=== PATIENT | female | born 1995 | race Caucasian/White ===

== ENCOUNTER 2020-07-15 02:28 | Emergency (ER) | payer MEDICAID ==
[2020-07-15] MEDS ORDERED: Sodium Chloride 0.9% 1,000 ML IV ONE ×2 (02:43→02:54)
[2020-07-15] MEDS ORDERED: Ondansetron 4 MG/2 ML SDV IVPUSH ONE ×2 (02:44→05:01)
[2020-07-15] MEDS ORDERED: Sodium Chloride 0.9% 10 ML Syringe FLUSH PRN (02:54)
[2020-07-15] MEDS ORDERED: Ketorolac 15 MG/ML SDV IVPUSH ONE (02:54)
[2020-07-15] MEDS ORDERED: Sodium Chloride 0.9% 2.5 ML Syringe FLUSH PRN (02:54)
[2020-07-15 03:17] LABS: CARBON DIOXIDE,CO2 27.2 mmol/L (21.0-32.0); POTASSIUM,K 3.6 mmol/L (3.5-5.1)
[2020-07-15] MEDS ORDERED: Cyclobenzaprine 10 MG Tab PO ONE (03:39)
[2020-07-15] MEDS ORDERED: Ketorolac 15 MG/ML SDV IVPUSH STA (03:40)
--- NOTE | 2020-07-15 05:03 | EDM.PDOC ---
ED HPI GENERAL MEDICAL PROBLEM - General Chief Complaint: Gastrointestinal Problem Stated Complaint: VOMITING Time Seen by Provider: 07/15/20 02:49 - History of Present Illness INITIAL COMMENTS - FREE TEXT/NARRATIVE: HISTORY AND PHYSICAL: History of present illness: Male who presents ER today complaining of nausea vomiting and diarrhea that started approximately 14 hours prior to arrival to the ED. Patient reports that she was in usual state of good health prior to this occurring. Patient denies any recent fevers, shakes, chills. Patient reports decreased urinary output secondary to decreased p.o. intake over the last 12 to 14 hours. Patient has any chest pain or shortness of breath. Patient complains of abdominal discomfort with vomiting but otherwise is not having any abdominal pain. Patient reports no other sick family contacts. Patient reports that she is had approximately 6 loose watery bowel movements in the last several hours at approximately 6-8 episodes of emesis. Patient denies any other sick family contacts or other people with similar symptoms. Patient denies any known Covid exposures. Patient reports has been quite a while since her last menstrual period secondary to [place]. 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 Patient reports she has not used heroin in several months and does not believe that she is in withdrawal right now. Review of systems: As per history of present illness and below otherwise all systems reviewed and negative. Past medical history: As per history of present illness and as reviewed below otherwise noncontributory. Surgical history: As per history of present illness and as reviewed below otherwise noncontributory. Social history: No reported history of drug or alcohol abuse. Family history: As per history of present illness and as reviewed below otherwise noncontributory. Physical exam: This patient was seen and evaluated during the 2019 SARS-CoV-2 novel coronavirus pandemic period. Community viral transmission is ongoing at time of this encounter and the emergency department is operating under pandemic response procedures. Constitutional: Patient is oriented to person, place, and time. Appears well- developed and well-nourished. No distress. HEENT: Moist mucous membranes Head: Normocephalic and atraumatic Eyes: Right eye exhibits no discharge. Left eye exhibits no discharge. No scleral icterus Neck: Normal range of motion. No tracheal deviation present. Cardiovascular: Normal rate and regular rhythm. Pulmonary: Effort normal, no respiratory distress. Abd: Soft, nondistended, no rebound/guarding, no psoas or obturator signs, no tenderness at Mcberney's point, no Bailey's sign. Pt does not present with an exam that would be consistent with an acute surgical abdomen at this time, nontender to palpation. Musculoskeletal: Normal range of motion, tenderness palpation to her upper and lower back bilaterally. No point C, T, L-spine tenderness palpation. Patient is neurologically intact. Patient moves all extremities well. Strength is 5 out of 5 in her upper and lower extremities. Neurologic: Alert and oriented to person, place and time. Skin: [place], warm and dry. Psychiatric: Normal mood and affect. Behavior is normal. Judgment and thought content normal. Nursing note and vital signs have been reviewed Diagnostics: CBC, CMP, urinalysis all within normal limits. Therapeutics: Zofran 4 mg IV, NSS x2 L, Toradol 15 mg IV x2, Flexeril 10 mg p.o. Assessment and plan: This is a 25-year-old female who presents ER today complaining of nausea vomiting diarrhea x14 hours prior to arrival. Patient appears clinically stable. Patient is not tachycardic upon arrival to the ED but she does report that she has not been able to keep anything down. Patient has been given 2 L of NSS as well as Zofran and Toradol for pain. While in the ED patient also started complaining of back discomfort so she was given another dose of Toradol 15 and Flexeril. Patient is clinically hemodynamically stable for discharge at this time and to resume close follow-up with her primary care physician. Reassessment at the time of disposition demonstrates that the patient is in no acute distress. The patient has remained stable throughout the entire ED visit and is without objective evidence for acute process requiring urgent intervention or hospitalization. The patient is stable for discharge, counseling is provided as documented above, discussed symptomatic treatment and specific conditions for return. I have spoken with the patient/caregiver and discussed todays findings, in addition to providing specific details for the plan of care. Questions are answered and there is agreement with the plan. Definitive disposition and diagnosis as appropriate pending reevaluation and review of above. abd Pain Score (Numeric/FACES): 10 - Related Data Allergies Allergy/AdvReac Type Severity Reaction Status Date / Time amoxicillin Allergy Swelling Verified 07/15/20 02:40 Home Meds: Home Meds Cyclobenzaprine [Flexeril] 10 mg PO TID PRN #20 tab 07/15/20 [Rx] Ibuprofen 600 mg PO Q6HR PRN #30 tablet 07/15/20 [Rx] Ondansetron [Zofran ODT] 4 mg PO Q6H PRN #12 tab.dis 07/15/20 [Rx] Past Medical History - Past Health History Medical/Surgical History: Denies Medical/Surgical History Psychiatric History: Reports: Addiction - Infectious Disease History Infectious Disease History: Reports: Chicken Pox Social & Family History - Family History Family Medical History: No Pertinent Family History ED ROS GENERAL - Review of Systems Review Of Systems: See Below ED EXAM, GENERAL - Physical Exam Exam: See Below Course - Vital Signs Last Recorded V/S: Last Vital Signs Temp 98.1 F 07/15/20 02:41 Pulse 77 07/15/20 02:41 Resp 18 07/15/20 02:41 BP 108/72 07/15/20 02:41 Pulse Ox 97 07/15/20 02:41 - Orders/Labs/Meds Orders: Active Orders 24 hr Category Date Time Status HCG QUALITATIVE,URINE [URCHEM] Stat Lab 07/15/20 02:54 Ordered UA W/HORACIO RFLX IF INDICATED [URIN] Stat Lab 07/15/20 02:54 Ordered Sodium Chloride 0.9% [Saline Flush] Med 07/15/20 02:54 Active 10 ml FLUSH ASDIRECTED PRN Sodium Chloride 0.9% [Saline Flush] Med 07/15/20 02:54 Active 2.5 ml FLUSH ASDIRECTED PRN Saline Lock Insert [OM.PC] Stat Oth 07/15/20 02:54 Ordered Medication Orders Sodium Chloride (Sodium Chloride 0.9% 10 Ml Syringe) 10 ml FLUSH ASDIRECTED PRN PRN Reason: Keep Vein Open Last Admin: 07/15/20 03:22 Dose: 10 ml Documented by: RISHI Sodium Chloride (Sodium Chloride 0.9% 2.5 Ml Syringe) 2.5 ml FLUSH ASDIRECTED PRN PRN Reason: Keep Vein Open Last Admin: 07/15/20 03:22 Dose: 2.5 ml Documented by: RISHI Labs: Laboratory Tests 07/15/20 07/15/20 Range/Units 02:45 02:45 WBC 10.13 (4.0-11.0) K/uL RBC 5.41 (4.30-5.90) M/uL Hgb 15.7 (12.0-16.0) g/dL Hct 46.0 (36.0-46.0) % MCV 85.0 (80.0-98.0) fL MCH 29.0 (27.0-32.0) pg MCHC 34.1 (31.0-37.0) g/dL RDW Std Deviation 39.9 (28.0-62.0) fl RDW Coeff of Anthony 13 (11.0-15.0) % Plt Count 390 (150-400) K/uL MPV 10.10 (7.40-12.00) fL Neut % (Auto) 78.0 (48.0-80.0) % Lymph % (Auto) 15.6 L (16.0-40.0) % [place] % (Auto) 6.2 (0.0-15.0) % Eos % (Auto) 0.0 (0.0-7.0) % Baso % (Auto) 0.2 (0.0-1.5) % Neut # (Auto) 7.9 H (1.4-5.7) K/uL Lymph # (Auto) 1.6 (0.6-2.4) K/uL [place] # (Auto) 0.6 (0.0-0.8) K/uL Eos # (Auto) 0.0 (0.0-0.7) K/uL Baso # (Auto) 0.0 (0.0-0.1) K/uL Nucleated RBC % 0.0 /100WBC Nucleated RBCs # 0 K/uL Sodium 141 (136-145) mmol/L Potassium 3.6 (3.5-5.1) mmol/L Chloride 104 (98-107) mmol/L Carbon Dioxide 27.2 (21.0-32.0) mmol/L BUN 22 H (7.0-18.0) mg/dL Creatinine 1.3 H (0.6-1.0) mg/dL Est Cr Clr Drug Dosing 45.78 mL/min Estimated GFR (MDRD) 50.8 ml/min Glucose 136 H (74-106) mg/dL Calcium 9.4 (8.5-10.1) mg/dL Total Bilirubin 0.6 (0.2-1.0) mg/dL AST 35 (15-37) IU/L ALT 110 H (14-63) IU/L Alkaline Phosphatase 125 H (46-116) U/L Total Protein 8.4 H (6.4-8.2) g/dL Albumin 4.0 (3.4-5.0) g/dL Globulin 4.4 H (2.6-4.0) g/dL Albumin/Globulin Ratio 0.9 (0.9-1.6) Lipase 84 (73-393) U/L Meds: Medications Generic Name Dose Route Start Last Admin Trade Name Freq PRN Reason Stop Dose Admin Sodium Chloride 10 ml 07/15/20 02:54 07/15/20 03:22 Sodium Chloride 0.9% 10 Ml Syringe FLUSH 10 ml ASDIRECTED PRN Administration Keep Vein Open Sodium Chloride 2.5 ml 07/15/20 02:54 07/15/20 03:22 Sodium Chloride 0.9% 2.5 Ml Syringe FLUSH 2.5 ml ASDIRECTED PRN Administration Keep Vein Open Discontinued Medications Generic Name Dose Route Start Last Admin Trade Name Freq PRN Reason Stop Dose Admin Cyclobenzaprine HCl 10 mg 07/15/20 03:39 07/15/20 04:10 Cyclobenzaprine 10 Mg Tab PO 07/15/20 03:40 10 mg ONETIME ONE Administration Sodium Chloride 1,000 mls @ 999 mls/hr 07/15/20 02:43 07/15/20 02:48 Normal Saline IV 07/15/20 03:43 999 mls/hr .Bolus ONE Administration Sodium Chloride 1,000 mls @ 999 mls/hr 07/15/20 02:54 07/15/20 03:20 Normal Saline IV 07/15/20 03:54 999 mls/hr .Bolus ONE Administration Ketorolac Tromethamine 15 mg 07/15/20 02:54 07/15/20 03:22 Ketorolac 15 Mg/Ml Sdv IVPUSH 07/15/20 02:55 15 mg ONETIME ONE Administration Ketorolac Tromethamine 15 mg 07/15/20 03:40 07/15/20 04:10 Ketorolac 15 Mg/Ml Sdv IVPUSH 07/15/20 03:41 15 mg Q6H STA Administration Ondansetron HCl 4 mg 07/15/20 02:44 07/15/20 02:49 Ondansetron 4 Mg/2 Ml Sdv IVPUSH 07/15/20 02:45 4 mg ONETIME ONE Administration Departure - Departure Time of Disposition: 05:01 Disposition: Home, Self-Care 01 Clinical Impression: Gastroenteritis, Vomiting, Diarrhea, Dehydration, Back pain - Discharge Information Instructions: Dehydration, Adult, [id number], Nausea and Vomiting, Adult, Viral Gastroenteritis, Adult, [id number], Acute Back Pain, Adult Referrals: PCP,Not In Area [Primary Care Provider] - Additional Instructions: You were seen and evaluated in ER today secondary to your nausea vomiting and di arrhea. You have been given 2 L of IV fluids to assist with rehydrating you. You have also been given nausea medication as well as pain medication to assist you with your symptoms. You will be discharged home with a prescription for Zofran to assist you with your nausea. Ibuprofen and Flexeril to assist you with your pain and discomfort. Please make an appointment to see your family doctor in the next 1 to 2 days to be reevaluated. The following information is given to patients seen in the emergency department who are being discharged to home. This information is to outline your options for follow-up care. We provide all patients seen in our emergency department with a follow-up referral. The need for follow-up, as well as the timing and circumstances, are variable depending upon the specifics of your emergency department visit. If you don't have a primary care physician on staff, we will provide you with a referral. We always advise you to contact your personal physician following an emergency department visit to inform them of the circumstance of the visit and for follow-up with them and/or the need for any referrals to a consulting specialist. The emergency department will also refer you to a specialist when appropriate. This referral assures that you have the opportunity for follow-up care with a specialist. All of these measure are taken in an effort to provide you with optimal care, which includes your follow-up. Under all circumstances we always encourage you to contact your private physician who remains a resource for coordinating your care. When calling for follow-up care, please make the office aware that this follow-up is from your recent emergency room visit. If for any reason you are refused follow-up, please contact the [facility] Emergency Department at and asked to speak to the emergency department charge nurse. [facility] - Primary Care [address], [place] [address] [facility] [address] [place] [id number] Sepsis Event Note (ED) - Evaluation Sepsis Screening Result: No Definite Risk - Focused Exam Vital Signs: Vital Signs Temp Pulse Resp BP Pulse Ox 07/15/20 02:41 98.1 F 77 18 108/72 97 - My Orders Last 24 Hours: My Active Orders 07/15/20 02:54 HCG QUALITATIVE,URINE [URCHEM] Stat UA W/HORACIO RFLX IF INDICATED [URIN] Stat Sodium Chloride 0.9% [Saline Flush] 10 ml FLUSH ASDIRECTED PRN Sodium Chloride 0.9% [Saline Flush] 2.5 ml FLUSH ASDIRECTED PRN Saline Lock Insert [OM.PC] Stat - Assessment/Plan Last 24 Hours: My Active Orders 07/15/20 02:54 HCG QUALITATIVE,URINE [URCHEM] Stat UA W/HORACIO RFLX IF INDICATED [URIN] Stat Sodium Chloride 0.9% [Saline Flush] 10 ml FLUSH ASDIRECTED PRN Sodium Chloride 0.9% [Saline Flush] 2.5 ml FLUSH ASDIRECTED PRN Saline Lock Insert [OM.PC] Stat
== END 2020-07-15 05:25 | disposition home or self-care (01) ==
LOC: MW.ED 02:28
DX: K52.9 Noninfective gastroenteritis and colitis, unspecified (principal); E86.0 Dehydration; M54.9 Dorsalgia, unspecified; Z88.1 Allergy status to other antibiotic agents
CPT/HCPCS: 36415; 80053; 83690; 85025; 96374; 96375; 96376; 99284; A9270; J1885; J2405; J7030; 99283